=== PATIENT | male | born 1980 | race Caucasian/White ===

== ENCOUNTER 2019-07-17 15:19 | Emergency (ER) | payer MEDICARE ==
[2019-07-17 15:44] VITALS: BP 121/71
--- NOTE | 2019-07-31 07:12 | UC ---
Respiratory Complaint HPI - HPI Summary HPI Summary: cough x 4 days cough is dry , harsh, worse at nights worse with deep breathing and cold weather, better with rest + fever, chills, body aches, nasal congestion , sinus pain and pressure , pnd posterior neck pain and soreness, no known injury denies any wheezing , no sob - History of Current Complaint Chief Complaint: UCGeneralIllness Stated Complaint: NECK PAIN/COUGH/UPPER RESPIRATORY Time Seen by Provider: 07/17/19 15:46 Hx Obtained From: Patient Onset/Duration: Gradual Onset, Lasting Days - 4, Still Present Timing: Constant Severity Initially: Moderate Severity Currently: Moderate Pain Intensity: 9 Pain Scale Used: 0-10 Numeric Character: Cough: Nonproductive Aggravating Factors: Exertion, Deep Breaths Alleviating Factors: Nothing Associated Signs And Symptoms: Positive: Fever, Chills, URI, Nasal Congestion, Sinus Discomfort. Negative: Dyspnea, Pleuritic Chest Pain, Wheezing, Hemoptysis , Dizziness - Allergies/Home Medications Allergies/Adverse Reactions: Allergies Allergy/AdvReac Type Severity Reaction Status Date / Time No Known Allergies Allergy Verified 07/17/19 15:32 Home Medications: Home Medications Phenylephrine HCl/Acetaminophn [Gnp Day Time Sinus] 1 cap PO PRN 07/17/19 [ History] PMH/Surg Hx/FS Hx/Imm Hx Previously Healthy: Yes - Surgical History Surgical History: Yes Surgery Procedure, Year, and Place: TUBES IN EARS - Family History Known Family History: Negative: Diabetes - Social History Alcohol Use: Daily Alcohol Amount: 2 VODKAS A DAY Substance Use Type: None Smoking Status (MU): Heavy Every Day Tobacco Smoker Type: Cigarettes Amount Used/How Often: 1/2 PPD Review of Systems All Other Systems Reviewed And Are Negative: Yes Constitutional: Positive: Fever, Chills, Fatigue Skin: Positive: Negative Eyes: Positive: Negative ENT: Positive: Nasal Discharge, Sinus Congestion, Sinus Pain/Tenderness Respiratory: Positive: Cough Cardiovascular: Positive: Negative Is Patient Immunocompromised?: No Physical Exam Triage Information Reviewed: Yes Appearance: Well-Appearing, No Pain Distress, Well-Nourished Vital Signs: Initial Vital Signs Temp 100.8 F 07/17/19 15:34 Pulse 92 07/17/19 15:34 Resp 20 07/17/19 15:34 BP 121/71 07/17/19 15:34 Pulse Ox 96 07/17/19 15:34 Vital Signs Reviewed: Yes Eye Exam: Normal Eyes: Positive: Conjunctiva Clear ENT: Positive: Normal ENT inspection, Hearing grossly normal, Pharynx normal, Nasal congestion, Nasal drainage, TMs normal Neck: Positive: Supple, Nontender, No Lymphadenopathy, Other: - pain with ROM, Respiratory: Positive: Chest non-tender, Lungs clear, Normal breath sounds. Negative: Crackles, Wheezing Cardiovascular: Positive: RRR, No Murmur Skin Exam: Normal Respiratory Course/Dx - Differential Dx/Diagnosis Provider Diagnosis: Bronchitis, Neck strain Discharge ED - Sign-Out/Discharge Documenting (check all that apply): Patient Departure All imaging exams completed and their final reports reviewed: No Studies - Discharge Plan Condition: Stable Disposition: HOME Prescriptions: Benzonatate CAP* [Tessalon 100 MG CAP*] 100 mg PO TID PRN #21 cap PRN Reason: Cough Naproxen [Naproxen 500 mg tab] 500 mg PO BID #20 tablet. Patient Education Materials: Acute Bronchitis (ED), Acute Neck Pain (ED) Referrals: Frankie Mathew MD [Primary Care Provider] - If Needed - Billing Disposition and Condition Condition: STABLE Disposition: Home
== END 2019-07-17 16:00 | disposition home or self-care (01) ==
LOC: UCCORT 15:19
DX: J40 Bronchitis, not specified as acute or chronic (principal); S16.1XXA Strain of muscle, fascia and tendon at neck level, initial encounter; X58.XXXA Exposure to other specified factors, initial encounter; Y92.9 Unspecified place or not applicable; F17.210 Nicotine dependence, cigarettes, uncomplicated
CPT/HCPCS: 99202; G0463

== ENCOUNTER 2019-10-10 20:40 | Emergency (ER) | payer MEDICARE ==
--- OUTSIDE RECORDS SUMMARY | 2019-10-10 20:46 | XMS REPORT | Summary of Care ---
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 male who appears the stated age. He has fair hygiene. He is sitting in a chair.He is dressed in a hospital gown. Behavior: Psychomotor: Patient does not have psychomotor agitation or psychomotor retardation. Eye Contact: Patient maintains good eye contact. Speech: Speech quantity: normal. Rate is normal. Volume is normal. Patient is responsive to questions only. Mood: "Ok". Affect: Affect is dysphoric. Patient appears to have restricted range. Thought Process: Thought process is linear. Thought Content: Patient does not express active suicidal ideation, passive suicidal ideation, active homicidal ideation and passive homicidal ideation. Perceptions: Patient is not internally preoccupied. Patient does not have auditory hallucinations orvisual hallucinations. Cognition: Patient is awake and alert. He is oriented to time, place and person. Insight: Poor Judgement: Poor Physical Exam -Constitutional: Awake and alert -Cardiac: S1 and S2. No murmur, rub, or gallop -Lungs: Normal respiratory effort. CTAB -GI: +BS. 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 male with a reported past psychiatric history as described above who presents because of a suicide attempt while intoxicated with alcohol. On interview, he endorses psychosocial stressor of unemployment which caused him to increase his drinking. Prior to presentation to the ED, he reports stabbing himself impulsively but with intent to end his life. The patient appears to be at an elevated risk of self harm and thus inpatient admission is recommended at this time forpatient safety, stabilization, and medication management. Plan: # Alcohol Withdrawal -Pt reports drinking alcohol -He estimates drinking 2 "bar glasses" of martini per day. -PLAN: -Continue CIWA protocol # Nicotine Withdrawl -Pt reports using cigarettes -PLAN: -Continue nicotine patch # Agitation -For severe agitation where the patient is at risk to himself and/or others, recommend haldol 5 mg q8h PRN MDD 3, ativan 1 mg q8h PRN MDD 3, and cogentin 1 mg q8h PRN MDD 3. # Wound -Per consult surgery note by Dr. Mathew on 08/30/19: "if admitted to psychiatry, trauma team will perform tertiary survery" -This insurance underwriter sales consulted trauma on 08/30/19 and trauma team agreed that this would be completed # Pain -PLAN: Continue acetaminophen I-STOP: Reference #: [id number] This plan was discussed with the attending, Dr. Taylor. Associated attestation - Oseas Taylor MD - 08/31/2019 5:20 PM HEMALATHA saw and evaluated the patient and concur with the assessment/plan of the resident. (diagnostic clarification is ongoing and includes Unspecified Intellectual Disability in the differential; group psychotherapy attendance is encouraged) Fadi Murphy RRT - 08/30/2019 4:15 AM ESTPatient arrived with a self inflicted stab wound to the chest. Vital signs stable, airway is intact. Spent 15 minutes with said patient. documented in this encounter Plan of Treatment Name Type Priority Associated Diagnoses Order Schedule Consult to Assisted Rehab Routine Continuous for 30 Days for PET Therapy-Rehab/Psych 30 Days starting 08/30/2019 until 08/30/2019 EKG 12 Lead ECG Routine Once for 1 Occurrences starting 08/30/2019 until 08/30/2019 documented as of this encounter Procedures Procedure Name Priority Date/Time Associated Comments Diagnosis DRUGS OF ABUSE, URINE CODE 08/30/2019 4:29 Results for this AM EST procedure are in the results section. CT THORAX WITH CONTRAST CODE 08/30/2019 4:12 Results for this 03951 AM EST procedure are in the results section. XR CHEST FRONTAL ONLY CODE 08/30/2019 4:03 Results for this 28289 AM EST procedure are in the results section. PARTIAL THROMBOPLASTIN Routine 08/30/2019 3:53 Results for this TIME (PTT) AM EST procedure are in the results section. ETHYL ALCOHOL LEVEL Routine 08/30/2019 3:53 Results for this AM EST procedure are in the results section. POCT ISTAT TROPONIN Routine 08/30/2019 3:53 Results for this AM EST procedure are in the results section. PROTIME INR Routine 08/30/2019 3:53 Results for this AM EST procedure are in the results section. CBC AND DIFFERENTIAL Routine 08/30/2019 3:53 Results for this AM EST procedure are in the results section. TSH Routine 08/30/2019 3:53 Results for this AM EST procedure are in the results section. COMPREHENSIVE METABOLIC Routine 08/30/2019 3:53 Results for this PANEL AM EST procedure are in the results section. documented in this encounter Results Drugs Of Abuse, Urine (08/30/2019 4:29 AM EST) Amphetamine Negative Negative Cutoff [facility] 1000 [facility] Pathology Benzodiazepine Negative Negative Cutoff [facility] 300 [facility]ology Cannabinoids Urine Negative Negative Cutoff [facility] 50 [facility]ology Cocaine Negative Negative Cutoff [facility] 300 [facility]ology Methadone (Dolophine) Negative Negative Cutoff [facility] 300 [facility]ology Opiates Negative Negative Cutoff [facility] 300 [facility]ology Oxycodone Negative Negative Cutoff [facility] 100 [facility]ology Fentanyl Negative Negative Cutoff [facility] 1 [facility] Pathology Drug Interpretation (NOTE) [facility] Comment: [facility] Results below the indicated cutoff (ng/mL), are reported as Pathology "Negative." Note: for medical purposes only; not valid for legal or employment testing. Specimen Urine Performing Organization Address City/State/Zipcode Phone Number [facility] CLINICAL PATHOLOGY [address] [place] [address] [facility] [address] [place] [address] Thorax with Contrast (08/30/2019 4:12 AM EST) Specimen Narrative Performed At PROCEDURE INFORMATION: [facility] Exam: CT Chest With Contrast Exam date and time: 08/30/2019 4:07 AM Age: 39 years old Clinical history: Pain; Other: Trauma TECHNIQUE: Imaging protocol: Computed tomography of the chest with intravenous contrast. Radiation optimization: All CT scans at this facility use at least one of these dose optimization techniques: automated exposure control; mA and/or kV adjustment per patient size (includes targeted exams where dose is matched to clinical indication); or iterative reconstruction. Contrast material: OMNI 300; Contrast volume: 50 ml; Contrast route: IV; COMPARISON: CR XR CHEST FRONTAL ONLY [id number] PORTABLE 08/30/2019 3:45 AM FINDINGS: Lungs: Mild paraseptal emphysema is present in the right upper lobe. There is a too small to characterize noncalcified pulmonary nodule within the anterior segment of the right upper lobe. The pulmonary nodule measures 4.7 mm. It is identified on axial image 23 of series 7. There are 5 too small to characterize noncalcified pulmonary nodules in the lateral segment of the right middle lobe. The largest discrete pulmonary nodule measures up to 4.6 mm. Pleural space: Unremarkable. No pneumothorax. No pleural effusion. Heart: Unremarkable. No cardiomegaly. No pericardial effusion. Aorta: Unremarkable. No aortic aneurysm. Lymph nodes: Unremarkable. No enlarged lymph nodes. Liver: Fatty liver. Bones/joints: There are degenerative changes involving the spine. 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 Soft tissues: There are foci of mild stranding in the superficial and deep anterior subcutaneous fat. IMPRESSION: 1. Foci of mild stranding in the anterior subcutaneous fat. This could represent edema, contusion, inflammation, or scarring. Correlate clinically. 2. Multiple too small to characterize noncalcified pulmonary nodules in the right upper lobe and right middle lobe. Correlation with prior examinations, if they become available, would be helpful for stability assessment. If prior exams are not available, consider follow up low-dose chest CT in 12 months for stability assessment. Fleischner Society guidelines used for recommendations regarding pulmonary nodule followup. THIS DOCUMENT HAS BEEN ELECTRONICALLY SIGNED BY BRANDON HERNANDEZ MD Procedure Note Interface, Received Via [employer] System - 08/30/2019 4:44 AM EST PROCEDURE INFORMATION: Exam: CT Chest With Contrast Exam date and time: 08/30/2019 4:07 AM Age: 39 years old Clinical history: Pain; Other: Trauma TECHNIQUE: Imaging protocol: Computed tomography of the chest with intravenous contrast. Radiation optimization: All CT scans at this facility use at least one of these dose optimization techniques: automated exposure control; mA and/or kV adjustment per patient size (includes targeted exams where dose is matched to clinical indication); or iterative reconstruction. Contrast material: OMNI 300; Contrast volume: 50 ml; Contrast route: IV; COMPARISON: CR XR CHEST FRONTAL ONLY [id number] PORTABLE 08/30/2019 3:45 AM FINDINGS: Lungs: Mild paraseptal emphysema is present in the right upper lobe. There is a too small to characterize noncalcified pulmonary nodule within the anterior segment of the right upper lobe. The pulmonary nodule measures 4.7 mm. It is identified on axial image 23 of series 7. There are 5 too small to characterize noncalcified pulmonary nodules in the lateral segment of the right middle lobe. The largest discrete pulmonary nodule measures up to 4.6 mm. Pleural space: Unremarkable. No pneumothorax. No pleural effusion. Heart: Unremarkable. No cardiomegaly. No pericardial effusion. Aorta: Unremarkable. No aortic aneurysm. Lymph nodes: Unremarkable. No enlarged lymph nodes. Liver: Fatty liver. Bones/joints: There are degenerative changes involving the spine. 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 Soft tissues: There are foci of mild stranding in the superficial and deep anterior subcutaneous fat. IMPRESSION: 1. Foci of mild stranding in the anterior subcutaneous fat. This could represent edema, contusion, inflammation, or scarring. Correlate clinically. 2. Multiple too small to characterize noncalcified pulmonary nodules in the right upper lobe and right middle lobe. Correlation with prior examinations, if they become available, would be helpful for stability assessment. If prior exams are not available, consider follow up low-dose chest CT in 12 months for stability assessment. Fleischner Society guidelines used for recommendations regarding pulmonary nodule followup. THIS DOCUMENT HAS BEEN ELECTRONICALLY SIGNED BY BRANDON HERNANDEZ MD Performing Organization Address City/[facility] Phone Number [facility] [address] [place] [address] XR Chest Frontal Only (08/30/2019 4:03 AM EST) Specimen Narrative Performed At PROCEDURE INFORMATION: [facility] Exam: XR Chest, 1 View Exam date and time: 08/30/2019 4:03 AM Age: 39 years old Clinical history: Other: Trauma TECHNIQUE: Imaging protocol: XR of the chest Views: 1 view. COMPARISON: No relevant prior studies available. FINDINGS: Lungs: Unremarkable. No consolidation. Pleural space: Unremarkable. No pleural effusion. No pneumothorax. Heart/Mediastinum: Unremarkable. No cardiomegaly. Bones/joints: Unremarkable. IMPRESSION: No acute findings. THIS DOCUMENT HAS BEEN ELECTRONICALLY SIGNED BY BRANDON HERNANDEZ MD Procedure Note Interface, Received Via [employer] System - 08/30/2019 4:20 AM EST PROCEDURE INFORMATION: Exam: XR Chest, 1 View Exam date and time: 08/30/2019 4:03 AM Age: 39 years old Clinical history: Other: Trauma TECHNIQUE: Imaging protocol: XR of the chest Views: 1 view. COMPARISON: No relevant prior studies available. FINDINGS: Lungs: Unremarkable. No consolidation. Pleural space: Unremarkable. No pleural effusion. No pneumothorax. Heart/Mediastinum: Unremarkable. No cardiomegaly. Bones/joints: Unremarkable. IMPRESSION: No acute findings. THIS DOCUMENT HAS BEEN ELECTRONICALLY SIGNED BY BRANDON HERNANDEZ MD Performing Organization Address [facility]/Zipcode Phone Number [facility] [address] [place] [address] TSH (08/30/2019 3:53 AM EST) TSH 2.240 0.270 - 4.200 u[IU]/mL [facility] Clin Pathology Specimen Plasma Performing Organization Address City/State/[facility] Phone Number [facility] CLINICAL PATHOLOGY [address] [place] [address] [phone] [facility] Clin [address] [place] [address] Pathology Partial Thromboplastin Time (PTT) (08/30/2019 3:53 AM EST) PTT Patient (PAT) 28.2 24.0 - 34.0 s [facility] Clin Pathology Specimen Plasma Performing Organization Address City/[facility] Phone Number [facility] CLINICAL PATHOLOGY [address] [place] [address] [phone] [facility] Univ [facility] [address] [place] [address] Pathology Protime-INR (08/30/2019 3:53 AM EST) PT Patient 12.8 12.5 - 14.9 [facility] Pathology Int'l Normalized 0.94Comment: Routine [facility] Ratio intensity oral [facility] anticoagulation INR is Pathology typically 2.0-3.0. Target INR must be clinically individualized. Specimen Plasma Performing Organization Address [facility] Phone Number [facility] CLINICAL PATHOLOGY [address] [place] [address] [phone] [facility] Clin [address] [place] [address] Pathology Comprehensive Metabolic Panel (08/30/2019 3:53 AM EST) Albumin 4.2 3.5 - 5.2 [facility] g/dL Univ [facility] Pathology Bilirubin, Total 0.2 <1.2 mg/dL [facility] Pathology Calcium 8.5 (L) 8.6 - 10.0 [facility] mg/dL [facility] Pathology Chloride 104 98 - 107 [facility] mmol/L [facility] Pathology Creatinine 0.83 0.70 - 1.20 [facility] mg/dL [facility] Pathology Glucose 139 70 - 140 [facility] mg/dL [facility] Pathology Alkaline 50 40 - 129 U/L [facility] Phosphatase [facility] Pathology Potassium 3.9 3.4 - 5.1 [facility] mmol/L [facility] Pathology Total Protein 6.6 6.4 - 8.3 [facility] g/dL [facility] Pathology Sodium 140 136 - 145 [facility] mmol/L [facility] Pathology AST/SGO 41 (H)Comment: <40 U/L [facility] Hemolyzed [facility] Pathology Blood Urea Nitrogen 6 6 - 20 mg/dL [facility] Clin Pathology Osmolality, Isaiah 290 275 - 300 [facility] mosm/kg [facility] Pathology BUN/Cre Ratio 7 [facility] Univ [facility] Pathology Bicarbonate 22 22 - 29 [facility] mmol/L [facility] Pathology ALT/SGP 44 (H) <41 U/L [facility] Pathology Anion Gap 14 8 - 15 mmol/L [facility] Pathology A/G Ratio 1.8 [facility] Pathology GFR Non >90 >60 [facility] Welsh 2008 mL/min/1.73m2 Univ [facility] CDK-EPI Pathology GFR >90 >60 [facility] 2008 mL/min/1.73m2 [facility] CKD-EPI Pathology Specimen Plasma Performing Organization Address City/State/[facility] Phone Number [facility] CLINICAL PATHOLOGY [address] [place] [address] [phone] [facility] Univ Clin [address] [place] [address] Pathology CBC and Differential (08/30/2019 3:53 AM EST) White Blood Cell 14.3 (H) 4 - 10 [facility] 10*3/uL [facility] Pathology Red Blood Cell 5.21 4.6 - 6.1 [facility] 10*6/uL [facility] Pathology Hemoglobin 15.8 13.5 - 18 [facility] g/dL [facility] Pathology Hematocrit 46.7 41 - 53 % [facility] Pathology Mean Cell Volume 89.7 80 - 96 fL [facility] Pathology Mean Cell Hemoglobin 30.3 27 - 33 pg [facility] Pathology Mean Cell Hgb Conc 33.8 32.0 - 36.0 [facility] g/dL Univ [facility] Pathology Red Cell Dist Width 13.6 11.5 - 14.5 % [facility] Pathology Platelet Count 237 150 - 400 [facility] 10*3/uL [facility] Pathology Differential Type Automated Diff [facility] Pathology Neutrophil 77 % [facility] Pathology Lymphocyte 15 % [facility] Pathology Monocyte 8 % [facility] Pathology Eosinophil 0 % [facility] Pathology Basophil 0 % [facility] Pathology Abs Neutrophil 10.95 (H) 1.8 - 7.0 [facility] 10*3/uL [facility] Path[facility] Abs Lymphocyte 2.19 1.2 - 4.0 [facility] 10*3/uL [facility] Pathology Abs Monocyte 1.11 (H) 0 - 0.8 [facility] 10*3/uL [facility] Pathology Abs Eosinophil 0.02 0 - 0.5 [facility] 10*3/uL [facility] Pathology Abs Basophil 0.05 0 - 0.2 [facility] 10*3/uL [facility] Pathology Nucleated Red Blood 0 0 - 0 [facility] Cells /100{WBCs} [facility] Pathology Specimen EDTA Whole Blood Performing Organization Address [facility] Phone Number [facility] PATHOLOGY [address] [place] [address] [facility] [address] [place] [address] Pathology Ethyl Alcohol Level (08/30/2019 3:53 AM EST) Ethyl Alcohol 0.08 (A) Negative g/dl [facility] Clin Pathology Specimen Plasma Performing Organization Address [facility] Phone Number [facility]OLOGY [address] [place] [address] [phone] [facility] [address] [place] [address] Pathology POCT i-STAT Troponin (08/30/2019 3:53 AM EST) i-STAT Troponin I 0.00 0.00 - 0.08 ng/mL [facility] POC Specimen Whole Blood Performing Organization Address [facility] Phone Number POINT OF CARE TEST [address] [place] [address] [facility] POC [address] [place] [address] documented in this encounter Visit Diagnoses Diagnosis Depression with suicidal ideation - Primary Alcohol abuse Alcohol abuse, unspecified Pulmonary nodules/lesions, multiple Other nonspecific abnormal finding of lung field Stab wound Open wound(s) (multiple) of unspecified site(s), without mention of complication documented in this encounter Administered Medications Medication Order MAR Action Action Date Dose Rate Site acetaminophen (TYLENOL) tablet 650 mg 650 mg, Oral, Every 6 hours PRN, Mild Pain (Pain Scale Score 1-3), Starting Zahra 08/30/19 at 1436, For 30 days, Maximum daily dose of acetaminophen is 3,000 mg from all sources in 24 hours., bacitracin ointment Given 09/03/2019 2:48 PM EST Topical, Three Times Daily Standard, First dose on Tue08/31/19 at 0800, For 14 days, Apply to abrasions/laceration tid until clear, Given 09/03/2019 8:18 AM EST Given 09/02/2019 9:33 PM EST benztropine (COGENTIN) tablet 1 mg 1 mg, Oral, Every 8 hours PRN, Tremor, For EPS. MDD 3, Starting Zahra 08/30/19 at 1440, For 719 hours haloperidol (HALDOL) tablet 5 mg 5 mg, Oral, Every 8 hours PRN, Agitation, For severe agitation where the patient is at risk to himself and/or others. MDD 3, Starting Zahra 08/30/19 at 1440, For 719 hours hydrOXYzine (ATARAX) tablet 25 mg Given 09/02/2019 9:23 PM EST 25 mg 25 mg, Oral, Every 6 hours PRN, Itching, Anxiety, Starting Tue08/31/19 at 1834, For 30 days Given 09/01/2019 8:47 PM EST 25 mg Given 08/31/2019 8:39 PM EST 25 mg influenza vac split quad (FLUARIX) injection 6 months and older 0.5 mL 0.5 mL, Intramuscular, Give Now, Starting Tue08/30/19 at 0853, For 1 dose nicotine (NICODERM CQ) 14 Patch Applied 09/03/2019 8:16 AM EST 1 patch Left Arm MG/24HR 1 patch 1 patch, Transdermal, Administer over 24 Hours, Daily Standard, First dose (after last modification) on Tue08/30/19 at 1745, For 30 days Patch Applied 09/02/2019 9:05 AM EST 1 patch Right Arm Patch Applied 09/01/2019 8:39 AM EST 1 patch Other Medication Order MAR Action Action Date Dose Rate Site ceFAZolin (ANCEF) injection Given 08/30/2019 3:56 AM EST 2 g Code/Trauma Medication, Starting Zahra 08/30/19 at 0356 cloNIDine (CATAPRES) tablet 0.1 mg Given 08/31/2019 11:39 AM EST 0.1 mg 0.1 mg, Oral, Once, 08/31/19 at 1115, For 1 dose iohexol (OMNIPAQUE) 300 New Syringe/Cartridge 08/30/2019 4:12 AM 50 mLs Left Arm MG/ML contrast EST injection 50 mL 50 mL, Given by IV, 1 TIME IMAGING, Zahra 08/30/19 at 0415, For 1 dose LORazepam (ATIVAN) tablet 2 mg Given 08/31/2019 11:42 AM EST 2 mg 2 mg, Oral, Every 1 hour PRN, Per CIWA Protocol, Starting Zahra 08/30/19 at 1218, For 4 days, CIWA >=13 Maximum of 8 mg in 4 hour period. If patient is sleeping, do not wake them to administer Lorazepam or to assess the CIWA score. Assess once patient awakens., documented in this encounter
--- OUTSIDE RECORDS SUMMARY | 2019-10-10 20:46 | XMS REPORT | Continuity of Care Document ---
:1980 External Reference #:[id number] Author Name Fadi Miranda MD (transmitted by agent of provider Yue Mcghee) Address [address] [place] [address] Care Team Providers Name Role Phone Fadi Miranda MD - Family Care Team Information [employer] [phone] [facility] Care Team Information [employer] [phone] [place] - Multi-Specialty Problems Description No Information Available Social History Type Date Description Comments Sex Unknown ETOH Use Has consumed alcohol in [facility] the past after suicidal Tobacco Use Start: Unknown Heavy tobacco smoker (more than 10 cigarettes/day) Smoking Status Reviewed: 10/01/19 Heavy tobacco smoker (more than 10 cigarettes/day) Tattoo/Piercing Pierced ears Allergies, Adverse Reactions, Alerts Description No Known Drug Allergies Medications Active Medications SIG Qnty Indications Ordering Provider Date Citalopram 1/2 tablet for 2 30tabs F33.1 Fadi 10/01/2019 Hydrobromide weeks and then 1 MD Ruth 20mg by mouth every day Tablets Hydroxyzine HCL 1 tablets by mouth [facility] 25mg every 6-8 hours as Services Of Tablets needed for anxiety [facility] [facility] Amie Lozoya 1 mg twice a day Unknown 1mg Tablets Medications Administered in Office Medication SIG Qnty Indications Ordering Provider Date PPD Fadi Miranda MD 10/01/2019 Injection Immunizations CPT Code Status Date Vaccine Lot # [id number] Given 09/13/2019 Influ Virus Vaccine, Quadrivalent, Split Virus, Im Fluzone not PF Vital Signs Date Vital Result Comment 10/01/2019 8:59am Height 70.5 inches 5'10.50" Weight 256.00 lb Heart Rate 77 /min BP Systolic 110 mmHg BP Diastolic 74 mmHg Respiratory Rate 16 /min BMI (Body Mass Index) 36.2 kg/m2 Results Description No Information Available Procedures Date Code Description Status 09/26/2018 88352946 Colonoscopy Completed Medical Devices Description No Information Available Encounters Description No Information Available Assessments Date Code Description Provider 10/01/2019 Z00.00 Encounter for general adult medical Fadi Miranda MD examination without abnormal findings 10/01/2019 F33.1 Major depressive disorder, recurrent, Fadi Miranda MD moderate 10/01/2019 E66.3 Overweight Fadi Miranda MD Plan of Treatment Future Appointment(s):12/31/2019 2:30 pm - KEZIA Stewart at [facility]10/03/2019 10:00 am - Nurse Schedule Loc 73 at [facility]10/01/2019 - Fadi Miranda MDZ00.00 Encounter for general adult medical examination without abnormal findingsNew Labs:CBC Auto Diff, Ordered: 10/01/19Lipid Profile (Trig/Chol/HDL), Ordered: 10/01/19F33.1 Major depressive disorder, recurrent, moderateNew Medication:Citalopram Hydrobromide 20 mg - 1/2 tablet for 2 weeks and then 1 by mouth every dayNew Labs:TSH (Thyroid Stim Horm), Ordered: Vitamin D Total 25(Oh), Ordered: 10/01/19Follow up:3 [id number] OverweightNew Labs:Comp Metabolic Panel, Ordered: 10/01/19 Functional Status Functional Condition Comment Date Status Glasses Active Mental Status Description No Information Available Referrals Description No Information Available
[2019-10-10 20:53] VITALS: BP 148/74
--- NOTE | 2019-10-10 21:07 | UC ---
UC General HPI - HPI Summary HPI Summary: 39-year-old male who states over the past 3 days after he eats dinner he has diarrhea one time with green stool. No other family members are ill. He denies any vomiting or fever. - History of Current Complaint Chief Complaint: UCGI Stated Complaint: DIARRHEA Time Seen by Provider: 10/10/19 20:57 Hx Obtained From: Patient Onset/Duration: Gradual Onset, Lasting Days Timing: Intermittent Episodes Lasting: Onset Severity: Mild Current Severity: Mild Pain Intensity: 0 - Allergy/Home Medications Allergies/Adverse Reactions: Allergies Allergy/AdvReac Type Severity Reaction Status Date / Time No Known Allergies Allergy Verified 07/17/19 15:32 Home Medications: Home Medications Antidepressant 10/10/19 [History] Varenicline Tartrate [Chantix Starting M... 0.5 mg X 11 & 1 mg X 42] 1 antelmo PO DAILY 10/10/19 [History Confirmed 10/10/19] hydrOXYzine HCL TAB* [Atarax 25 MG TAB*] 25 mg PO TID 10/10/19 [History Confirmed 10/10/19] PMH/Surg Hx/FS Hx/Imm Hx Previously Healthy: Yes - Surgical History Surgical History: Yes Surgery Procedure, Year, and Place: TUBES IN EARS - Family History Known Family History: Negative: Diabetes - Social History Alcohol Use: None Alcohol Amount: 2 VODKAS A DAY Substance Use Type: None Smoking Status (MU): Heavy Every Day Tobacco Smoker Type: Cigarettes Amount Used/How Often: 1/2 PPD Review of Systems All Other Systems Reviewed And Are Negative: Yes Gastrointestinal: Positive: Diarrhea - Diarrhea one time in the evening after eating food over the past 3 days. States diarrhea is green in color. No other complaints Is Patient Immunocompromised?: No Physical Exam Triage Information Reviewed: Yes Appearance: Well-Appearing, No Pain Distress, Well-Nourished Vital Signs: Initial Vital Signs Temp 97.8 F 10/10/19 20:46 Pulse 80 10/10/19 20:46 Resp 16 10/10/19 20:46 BP 148/74 10/10/19 20:46 Pulse Ox 98 10/10/19 20:46 Vital Signs Reviewed: Yes Respiratory: Positive: Lungs clear, Normal breath sounds, No respiratory distress, No accessory muscle use Cardiovascular: Positive: RRR, No Murmur, Pulses Normal, Brisk Capillary Refill Abdomen Description: Positive: Nontender, No Organomegaly, Soft. Negative: CVA Tenderness (R), CVA Tenderness (L), Distended, Guarding, Hepatomegaly, Splenomegaly Bowel Sounds: Positive: Present Musculoskeletal Exam: Normal Neurological Exam: Normal Psychological Exam: Normal Skin Exam: Normal Course/Dx - Course Course Of Treatment: Patient is comfortable here, nontoxic, does not appear ill. Advised for continued symptoms he should follow up with his primary care provider however I think this is a viral syndrome that is being seen in the local community. - Diagnoses Provider Diagnosis: Diarrhea Discharge ED - Sign-Out/Discharge Documenting (check all that apply): Patient Departure All imaging exams completed and their final reports reviewed: No Studies - Discharge Plan Condition: Fair Disposition: HOME Patient Education Materials: Acute Diarrhea (ED) Referrals: Tonia Ma PA [Primary Care Provider] - Additional Instructions: Increase fluids, avoid fatty foods and spicy foods. If you develop abdominal pain, fever or worsening symptoms such as vomiting then you're to go to the emergency room for further evaluation and treatment. Follow-up with your primary care provider on Tuesday if continued symptoms. - Billing Disposition and Condition Condition: FAIR Disposition: Home
== END 2019-10-10 21:09 | disposition home or self-care (01) ==
LOC: UCCORT 20:40
DX: R19.7 Diarrhea, unspecified (principal); F17.210 Nicotine dependence, cigarettes, uncomplicated
CPT/HCPCS: 99211; G0463